=== PATIENT | female | born 1940 | race Caucasian/White ===

== ENCOUNTER → 2016-11-13 | Outpatient (CLI) | payer OTHER, MEDICARE ==
[~2016-11-13] VITALS: Ht 160 cm; Wt 80.0 kg
[~2016-11-13] MED LIST: ADULT LOW DOSE81 M1 PO; AMLODIPINE BESY10 MG PO; CLORAZEPATE DIP15 MG PO; HYDROCHLOROTHIA25 MG PO; IBUPROFEN800 MG PO; INDERAL20 MG PO; K-DUR10 MEQ PO; LEVOTHROID150 MCG PO; METOPROLOL TART50 MG PO; NORVASC10 MG PO; NORVASC5 MG PO; PRAVASTATIN SOD80 MG PO; PROAIR HFA8.5 GM IH; PROTONIX40 MG PO; SERTRALINE HCL100 MG PO; SYNTHROID150 MCG PO; TYLENOL EXTRA500 MG PO; WARFARIN SODIUM4 MG PO; ZESTRIL20 MG PO; ZOCOR40 MG PO; ZOLOFT100 MG PO
[2016-11-13 10:52] LABS: MCH 28.1 PG (29.0-34.0); MCHC 34.4 G/DL (30.0-36.0); MCV 81.5 FL (83-99); MEAN PLAT.VOLUME 11.3 uM^3 (9.5-12.4); PLATELET COUNT 184 K/uL (156-360); RBC DIS.WIDTH-CV 13.6 % (11.8-14.6); RED BLOOD COUNT 5.52 M/uL (3.80-5.20); WHITE BLOOD COUNT 5.6 K/uL (4.1-10.2)
[2016-11-13 11:02] LABS: PTT 28.1 (25-32)
[2016-11-13 11:08] LABS: INTER. NORMALIZED RATIO 1.1; PROTHROMBIN TIME 11.7 (9.2-11.2)
== END | disposition home or self-care (01) ==
LOC: EDSTATUS 10:00 → OPR 10:00
PROVIDERS: Radiology Diagnostic Radiology
PROC: 0BBJ3ZX Excision of Left Lower Lung Lobe, Percutaneous Approach, Diagnostic (ICD-10-PCS; principal; 2016-11-13)
DX: R91.1 Solitary pulmonary nodule (principal); Z86.711 Personal history of pulmonary embolism; J44.9 Chronic obstructive pulmonary disease, unspecified; G47.33 Obstructive sleep apnea (adult) (pediatric)
CPT/HCPCS: 71010; 77012; 85027; 85610; 85730; 88305; 88312; J3010

== ENCOUNTER 2017-11-17 19:08 | Inpatient (IN) | payer OTHER, MEDICARE ==
[~2017-11-17] VITALS: Ht 160 cm; Wt 82.4 kg
[2017-11-17 19:27] LABS: HEMATOCRIT 47.9 % (36.0-46.0); HEMOGLOBIN 16.6 G/DL (11.9-15.5); MCH 30.2 PG (29.0-34.0); MCHC 34.7 G/DL (30.0-36.0); MCV 87.1 FL (83-99); PLATELET COUNT 217 K/uL (156-360); RBC DIS.WIDTH-CV 13.5 % (11.8-14.6); RBC DIS.WIDTH-SD 43.2 % (39-53); WHITE BLOOD COUNT 7.8 K/uL (4.1-10.2)
[2017-11-17 19:39] LABS: CHLORIDE 107 mEq/L (99-109); POTASSIUM 4.7 mEq/L (3.7-5.4); SODIUM 140 mEq/L (136-147)
[2017-11-17 19:41] LABS: GLUCOSE 121 mg/dL (70-99)
[2017-11-17 19:45] LABS: CREATININE 0.9 mg/dL (0.6-1.3); GFR ESTIMATE (CALCULATED) > 59 mL/min/
[2017-11-17 19:46] LABS: UREA NITROGEN (BUN) 13 mg/dL (9-23)
[2017-11-17 19:49] LABS: TROP-I INTERPRETATION NEGATIVE; TROPONIN-I < 0.01 ng/mL (0.0-0.30)
[2017-11-17] MEDS ORDERED: INCRUSE ELLI62.5 MCG IH (22:17)
[2017-11-17] MEDS ORDERED: VISINE TOTALITY15 ML BOTH EYES (22:18)
[2017-11-17] MEDS ORDERED: TYLENOL ARTHRI650 MG PO (22:21)
[2017-11-17] MEDS ORDERED: KLOR-CON 1010 ME1 PO (22:23)
[2017-11-17] MEDS ORDERED: COUMADIN2.5 MG PO (22:24)
[2017-11-17] MEDS ORDERED: HYDROCHLOROTHIA25 MG PO (22:26)
[2017-11-17] MEDS ORDERED: ERGOCALCIF50000 UNIT PO (22:29)
[2017-11-17 23:05] LABS: INTER. NORMALIZED RATIO 2.4
[2017-11-17 23:08] LABS: PTT 40.5 SEC (25-37)
[2017-11-17 23:58] LABS: HDL CHOLESTEROL 41 MG/DL (Desirable>=50); LDL CHOLESTEROL 166 mg/dL (Desirable<100); NON-HDL CHOLESTEROL 238 mg/dL (Desirable<160); TOTAL CHOLESTEROL 279 mg/dL (Desirable<200); TRIGLYCERIDES 362 MG/DL (Normal: <150)
[2017-11-18 02:27] LABS: TROP-I INTERPRETATION NEGATIVE; TROPONIN-I < 0.01 ng/mL (0.0-0.30)
[2017-11-18 03:39] VITALS: BP 207/95
[2017-11-18 04:10] VITALS: BP 207/95
[2017-11-18 07:37] VITALS: BP 187/83
[2017-11-18 08:26] LABS: HEMATOCRIT 46.8 % (36.0-46.0); MCHC 34.2 G/DL (30.0-36.0); MCV 87.8 FL (83-99); PLATELET COUNT 192 K/uL (156-360); RBC DIS.WIDTH-CV 13.6 % (11.8-14.6); RBC DIS.WIDTH-SD 43.8 % (39-53); RED BLOOD COUNT 5.33 M/uL (3.80-5.20); WHITE BLOOD COUNT 7.2 K/uL (4.1-10.2)
[2017-11-18 08:41] LABS: TROP-I INTERPRETATION NEGATIVE; TROPONIN-I 0.02 ng/mL (0.0-0.30)
[2017-11-18 09:02] LABS: CHLORIDE 101 MEQ/L (99-109); GFR ESTIMATE (CALCULATED) 57 mL/min/; GLUCOSE 112 mg/dL (70-99); SODIUM 139 MEQ/L (136-147); UREA NITROGEN (BUN) 14 mg/dL (9-23)
[2017-11-18 09:03] LABS: POTASSIUM 3.6 MEQ/L (3.7-5.4)
[2017-11-18 09:09] LABS: INTER. NORMALIZED RATIO 2.5
[2017-11-18 09:40] LABS: HEMOGLOBIN A1c (GLYCOHEMOGLOB) 5.6 % (Below 5.7)
[2017-11-18 11:10] LABS: APPEARANCE SL.HAZY ((CLEAR)); BILIRUBIN NEGATIVE; BLOOD MODERATE; COLOR YELLOW ((YELLOW)); GLUCOSE (STRIP) NEGATIVE; KETONES NEGATIVE; LEUKOCYTES MODERATE; NITRITE NEGATIVE; PROTEIN (STRIP) 30; SPECIFIC GRAVITY 1.014 (1.000-1.030); UROBILINOGEN 0.2 MG/DL (0.2-1.0)
[2017-11-18 11:33] LABS: BACTERIA 1+ /HPF; EPITHELIAL CELLS 2+ /HPF; MUCUS NONE SEEN /LPF; UCUL ADDED? YES
[2017-11-18 11:35] VITALS: BP 182/90
[2017-11-18 16:49] VITALS: BP 160/88
[2017-11-18 19:40] VITALS: BP 147/80
[2017-11-19] VITALS: BP 174/77
[2017-11-19 04:00] VITALS: BP 149/72
[2017-11-19 06:09] LABS: BASOPHIL (%) 1.1 % (0-1); BASOPHIL COUNT 0.1 K/uL (0-0.1); EOSINOPHIL (%) 1.8 % (0-5); EOSINOPHIL COUNT 0.1 K/uL (0-0.3); HEMATOCRIT 48.1 % (36.0-46.0); HEMOGLOBIN 16.2 G/DL (11.9-15.5); IMMATURE GRANULOCYTE (%) 0.4 % (0.0-0.7); LYMPHOCYTE (%) 25.4 % (15-42); LYMPHOCYTE COUNT 1.9 K/uL (1.0-2.8); MCH 29.3 PG (29.0-34.0); MCHC 33.7 G/DL (30.0-36.0); MONOCYTE (%) 10.1 % (3-12); MONOCYTE COUNT 0.8 K/uL (0-0.8); NEUTROPHIL (%) 61.2 % (45-76); NEUTROPHIL COUNT 4.6 K/uL (1.8-6.4); PLATELET COUNT 223 K/uL (156-360); RBC DIS.WIDTH-CV 13.3 % (11.8-14.6); RBC DIS.WIDTH-SD 42.6 % (39-53); RED BLOOD COUNT 5.53 M/uL (3.80-5.20); WHITE BLOOD COUNT 7.6 K/uL (4.1-10.2)
[2017-11-19 06:19] LABS: INTER. NORMALIZED RATIO 2.7
[2017-11-19 06:33] LABS: CHLORIDE 102 MEQ/L (99-109); CREATININE 1.1 MG/DL (0.6-1.3); GFR ESTIMATE (CALCULATED) 51 mL/min/; GLUCOSE 123 mg/dL (70-99); MAGNESIUM 2.1 mg/dl (1.3-2.7); POTASSIUM 3.7 MEQ/L (3.7-5.4); SODIUM 139 MEQ/L (136-147); UREA NITROGEN (BUN) 18 mg/dL (9-23)
[2017-11-19 07:16] VITALS: BP 148/75
[2017-11-19 08:28] LABS: THYROTROPIN (TSH) 4.6 MIU/L (0.4-5.5)
[2017-11-19 11:13] VITALS: BP 141/76
[2017-11-19 15:11] VITALS: BP 149/81
[2017-11-19 21:06] VITALS: BP 158/71
[2017-11-20] VITALS: BP 134/63
[2017-11-20 04:00] VITALS: BP 134/63
[2017-11-20 06:59] LABS: BASOPHIL (%) 0.9 % (0-1); BASOPHIL COUNT 0.1 K/uL (0-0.1); EOSINOPHIL (%) 2.1 % (0-5); EOSINOPHIL COUNT 0.2 K/uL (0-0.3); HEMATOCRIT 47.1 % (36.0-46.0); HEMOGLOBIN 15.8 G/DL (11.9-15.5); IMMATURE GRANULOCYTE (%) 0.6 % (0.0-0.7); LYMPHOCYTE (%) 27.4 % (15-42); LYMPHOCYTE COUNT 2.2 K/uL (1.0-2.8); MCH 29.4 PG (29.0-34.0); MCHC 33.5 G/DL (30.0-36.0); MCV 87.5 FL (83-99); MONOCYTE (%) 11.7 % (3-12); NEUTROPHIL (%) 57.3 % (45-76); NEUTROPHIL COUNT 4.7 K/uL (1.8-6.4); PLATELET COUNT 209 K/uL (156-360); RBC DIS.WIDTH-CV 13.5 % (11.8-14.6); RBC DIS.WIDTH-SD 43.4 % (39-53); RED BLOOD COUNT 5.38 M/uL (3.80-5.20); WHITE BLOOD COUNT 8.2 K/uL (4.1-10.2)
[2017-11-20 07:20] LABS: INTER. NORMALIZED RATIO 2.7
[2017-11-20 08:02] LABS: CHLORIDE 102 MEQ/L (99-109); CREATININE 1.5 MG/DL (0.6-1.3); GFR ESTIMATE (CALCULATED) 36 mL/min/; GLUCOSE 122 mg/dL (70-99); POTASSIUM 3.4 MEQ/L (3.7-5.4); SODIUM 140 MEQ/L (136-147)
[2017-11-20 08:19] LABS: UREA NITROGEN (BUN) 32 mg/dL (9-23)
[2017-11-20 08:38] VITALS: BP 139/71
[2017-11-20] MEDS ORDERED: NIFEDIPINE ER30 MG PO (11:05)
[2017-11-20] MEDS ORDERED: ASPIR-LOW81 MG PO (11:06)
[2017-11-20] MEDS ORDERED: ZESTRIL20 MG PO (11:10)
[2017-11-20 11:51] VITALS: BP 161/70
[2017-11-20] MEDS ORDERED: CLONAZEPAM0.5 MG PO (14:55)
== END 2017-11-20 13:39 | DRG 79 ==
LOC: EME → EDBD 19:08 → 5SOUTH 22:52 → EDOF 22:52 → ENRESERV 22:56 → 5SOUTH 11-18 03:34 → ENRESERV 11-18 03:39 → 5SOUTH 11-18 03:41 → ENPENDDIS 11-20 11:53 → 5SOUTH 11-20 13:39
PROVIDERS: Hospitalist; Physician Assistant
DX: I67.4 Hypertensive encephalopathy (principal); I16.0 Hypertensive urgency; J44.9 Chronic obstructive pulmonary disease, unspecified; E78.5 Hyperlipidemia, unspecified; I10 Essential (primary) hypertension; E89.0 Postprocedural hypothyroidism; I73.9 Peripheral vascular disease, unspecified; I45.9 Conduction disorder, unspecified; I65.22 Occlusion and stenosis of left carotid artery; Z79.01 Long term (current) use of anticoagulants; Z86.711 Personal history of pulmonary embolism; Z90.710 Acquired absence of both cervix and uterus; Z91.14 Patient's other noncompliance with medication regimen; Z79.82 Long term (current) use of aspirin; Z82.49 Family history of ischemic heart disease and other diseases of the circulatory system
CPT/HCPCS: 70450; 70551; 71046; 72125; 80048; 80061; 81003; 82570; 82948; 83036; 83735; 83880; 84300; 84443; 84484; 85025; 85027; 85610; 85730; 87086; 93005; 93306; 93880; 94640; 94640 76; 97530 GP; 99202; 99281; 99285; J2060; J7030

== ENCOUNTER 2017-11-20 10:57 | Inpatient (IN) | payer OTHER, MEDICARE ==
[~2017-11-20] VITALS: Ht 160 cm; Wt 82.0 kg
[~2017-11-20 10:57] MED LIST changes: +COUMADIN2.5 MG PO; +ERGOCALCIF50000 UNIT PO; +INCRUSE ELLI62.5 MCG IH; +KLOR-CON 1010 ME1 PO; +TYLENOL ARTHRI650 MG PO; +VISINE TOTALITY15 ML BOTH EYES
[2017-11-20] MEDS ORDERED: NIFEDIPINE ER30 MG PO (11:05)
[2017-11-20] MEDS ORDERED: ASPIR-LOW81 MG PO (11:06)
[2017-11-20] MEDS ORDERED: ZESTRIL20 MG PO (11:10)
[2017-11-20 14:25] VITALS: BP 167/72
[2017-11-20] MEDS ORDERED: CLONAZEPAM0.5 MG PO (14:55)
[2017-11-21 00:21] VITALS: BP 135/84
[2017-11-21 05:57] LABS: HEMATOCRIT 45.5 % (36.0-46.0); HEMOGLOBIN 15.3 G/DL (11.9-15.5); MCH 29.7 PG (29.0-34.0); MCHC 33.6 G/DL (30.0-36.0); MCV 88.3 FL (83-99); PLATELET COUNT 197 K/uL (156-360); RBC DIS.WIDTH-CV 13.5 % (11.8-14.6); RBC DIS.WIDTH-SD 43.9 % (39-53); RED BLOOD COUNT 5.15 M/uL (3.80-5.20); WHITE BLOOD COUNT 6.3 K/uL (4.1-10.2)
[2017-11-21 06:20] VITALS: BP 140/60
[2017-11-21 06:21] LABS: ALBUMIN 3.8 G/DL (3.2-4.8); ALKALINE PHOSPHATASE 51 IU/L (3-129); ALT (GPT) 11 IU/L (3-49); AST (GOT) 11 IU/L (2-34); CHLORIDE 106 MEQ/L (99-109); GFR ESTIMATE (CALCULATED) 57 mL/min/; GLUCOSE 123 mg/dL (70-99); POTASSIUM 3.8 MEQ/L (3.7-5.4); SODIUM 141 MEQ/L (136-147); TOTAL BILIRUBIN 0.5 MG/DL (0.0-1.0); TOTAL PROTEIN 5.7 G/DL (6.4-8.3); UREA NITROGEN (BUN) 25 mg/dL (9-23)
[2017-11-21 16:05] VITALS: BP 162/72
[2017-11-22 05:06] VITALS: BP 138/65
[2017-11-22 06:43] LABS: INTER. NORMALIZED RATIO 2.9
[2017-11-22 16:01] VITALS: BP 147/61
[2017-11-23 05:37] VITALS: BP 151/68
[2017-11-23 06:20] LABS: INTER. NORMALIZED RATIO 2.3
[2017-11-23 15:56] VITALS: BP 126/64
[2017-11-24 04:57] VITALS: BP 160/80
[2017-11-24 05:37] LABS: INTER. NORMALIZED RATIO 2.1
[2017-11-24 16:03] VITALS: BP 153/70
[2017-11-25 05:14] VITALS: BP 148/67
[2017-11-25 05:52] LABS: INTER. NORMALIZED RATIO 2.1
[2017-11-25 15:44] VITALS: BP 136/71
[2017-11-25 16:27] VITALS: BP 155/69
[2017-11-26 05:03] LABS: INTER. NORMALIZED RATIO 1.9
[2017-11-26 05:23] VITALS: BP 149/70
[2017-11-26 15:19] VITALS: BP 175/77
[2017-11-26 18:09] VITALS: BP 147/66
[2017-11-26 21:15] VITALS: BP 150/70
[2017-11-27 05:28] LABS: INTER. NORMALIZED RATIO 2.1
[2017-11-27 05:40] VITALS: BP 162/68
[2017-11-27 09:29] VITALS: BP 160/68
[2017-11-27 15:01] VITALS: BP 155/70
[2017-11-28 05:54] VITALS: BP 146/72
[2017-11-28 10:30] LABS: INTER. NORMALIZED RATIO 2.4
[2017-11-28 15:14] VITALS: BP 171/77
[2017-11-28 18:02] VITALS: BP 165/73
[2017-11-29 05:20] VITALS: BP 132/60
[2017-11-29 06:48] LABS: INTER. NORMALIZED RATIO 2.3
[2017-11-29 15:27] VITALS: BP 134/61
[2017-11-30 05:34] LABS: INTER. NORMALIZED RATIO 2.4
[2017-11-30 05:39] VITALS: BP 142/69
[2017-11-30 15:39] VITALS: BP 163/74
[2017-12-01 05:33] VITALS: BP 145/70
[2017-12-01 06:07] LABS: INTER. NORMALIZED RATIO 2.2
[2017-12-01 11:17] VITALS: BP 162/78
[2017-12-01 14:50] VITALS: BP 134/71
[2017-12-02 04:28] VITALS: BP 170/75
[2017-12-02 06:43] LABS: INTER. NORMALIZED RATIO 2.4
[2017-12-02 07:57] VITALS: BP 144/85
[2017-12-02 16:27] VITALS: BP 132/65
[2017-12-03 06:17] VITALS: BP 143/69
[2017-12-03 08:22] LABS: INTER. NORMALIZED RATIO 2.7
[2017-12-03 15:13] VITALS: BP 131/62
[2017-12-04 05:59] LABS: INTER. NORMALIZED RATIO 2.6
[2017-12-04 15:47] VITALS: BP 147/67
[2017-12-04 21:37] VITALS: BP 135/67
[2017-12-05 05:23] VITALS: BP 139/65
[2017-12-05 06:23] LABS: INTER. NORMALIZED RATIO 2.7
[2017-12-05 06:24] LABS: ALBUMIN 3.8 G/DL (3.2-4.8); ALKALINE PHOSPHATASE 58 IU/L (3-129); ALT (GPT) 16 IU/L (3-49); AST (GOT) 15 IU/L (2-34); CHLORIDE 108 MEQ/L (99-109); CREATININE 0.8 MG/DL (0.6-1.3); GFR ESTIMATE (CALCULATED) > 59 mL/min/; GLUCOSE 126 mg/dL (70-99); HEMATOCRIT 43.8 % (36.0-46.0); HEMOGLOBIN 14.5 G/DL (11.9-15.5); MCH 29.3 PG (29.0-34.0); MCHC 33.1 G/DL (30.0-36.0); MCV 88.5 FL (83-99); PLATELET COUNT 186 K/uL (156-360); POTASSIUM 4.3 MEQ/L (3.7-5.4); RBC DIS.WIDTH-CV 13.3 % (11.8-14.6); RBC DIS.WIDTH-SD 43.6 % (39-53); RED BLOOD COUNT 4.95 M/uL (3.80-5.20); SODIUM 141 MEQ/L (136-147); TOTAL BILIRUBIN 0.3 MG/DL (0.0-1.0); TOTAL PROTEIN 5.5 G/DL (6.4-8.3); UREA NITROGEN (BUN) 16 mg/dL (9-23); WHITE BLOOD COUNT 5.9 K/uL (4.1-10.2)
[2017-12-05 07:50] VITALS: BP 140/63
[2017-12-05 15:00] VITALS: BP 151/67
[2017-12-06 06:26] VITALS: BP 132/63
[2017-12-06 07:07] LABS: INTER. NORMALIZED RATIO 2.8
[2017-12-06] MEDS ORDERED: ZOLOFT25 MG PO (12:16)
[2017-12-06] MEDS ORDERED: ZESTRIL20 MG PO (12:16)
[2017-12-06] MEDS ORDERED: ACETAMINOPHEN-1 EAC1 PO (12:16)
[2017-12-06] MEDS ORDERED: LISINOPRIL2.5 MG PO (12:16)
[2017-12-06] MEDS ORDERED: KLOR-CON 1010 ME1 PO (12:16)
[2017-12-06] MEDS ORDERED: FLORASTOR250 MG PO (12:16)
[2017-12-06] MEDS ORDERED: NIFEDIPINE ER30 MG PO (12:16)
[2017-12-06] MEDS ORDERED: AMOXICILLIN500 MG PO (12:16)
== END 2017-12-06 13:44 | disposition home health service (06) | DRG 92 ==
LOC: 3WEST 10:57 → ENPENDDIS 12-03 → 3WEST 12-06 07:57
PROVIDERS: Physical Medicine & Rehabilitation Pain Medicine
PROC: F07M0ZZ Range of Motion and Joint Mobility Treatment of Musculoskeletal System - Whole Body (ICD-10-PCS; principal; 2017-11-20)
DX: R26.9 Unspecified abnormalities of gait and mobility (principal); R51 Headache; I10 Essential (primary) hypertension; E03.9 Hypothyroidism, unspecified; Z86.711 Personal history of pulmonary embolism; E78.5 Hyperlipidemia, unspecified; F32.9 Major depressive disorder, single episode, unspecified; F41.1 Generalized anxiety disorder; I67.4 Hypertensive encephalopathy; R91.1 Solitary pulmonary nodule; J44.9 Chronic obstructive pulmonary disease, unspecified; R42 Dizziness and giddiness; G47.00 Insomnia, unspecified; K04.7 Periapical abscess without sinus; Z90.710 Acquired absence of both cervix and uterus; I16.0 Hypertensive urgency; E87.6 Hypokalemia; I73.9 Peripheral vascular disease, unspecified; Z74.09 Other reduced mobility
CPT/HCPCS: 80053; 85027; 85610; 92507 GN; 92523 GN; 94640; 94640 76; 97110 GO; 97530 GP; 99202; G0515 GN